=== PATIENT | male | born 1975 | race Caucasian/White ===

== ENCOUNTER 2017-09-02 06:22 | Day surgery (SDC) | payer OTHER ==
[~2017-09-02] VITALS: Ht 188 cm; Wt 192.8 kg
[~2017-09-02 06:22] MED LIST: ALPR.5 PO; AMLO5 PO; CYCL10 PO; ESCI20 PO; FLUC100 PO; HYDHCL25 PO; Lisinopril2.5 MG PO; Percocet 10-321 EACH PO
== END 2017-09-02 22:48 | disposition home or self-care (01) ==
LOC: ORSCMMR 06:22
PROVIDERS: Surgery
PROC: 0DJD8ZZ Inspection of Lower Intestinal Tract, Via Natural or Artificial Opening Endoscopic (ICD-10-PCS; principal; 2017-09-02 07:30)
DX: K92.1 Melena (principal); K64.8 Other hemorrhoids; I25.2 Old myocardial infarction; G47.33 Obstructive sleep apnea (adult) (pediatric); I10 Essential (primary) hypertension; F41.9 Anxiety disorder, unspecified; E66.01 Morbid (severe) obesity due to excess calories; Z68.43 Body mass index [BMI] 50.0-59.9, adult; Z87.891 Personal history of nicotine dependence; Z79.899 Other long term (current) drug therapy
CPT/HCPCS: J7120

== ENCOUNTER → 2017-10-18 | Outpatient (CLI) | payer OTHER ==
[2017-10-18 17:44] LABS: U Amphetamine Screen Not Detected; U Barbituate Screen Not Detected; U Benzodiazapine Screen DETECTED; U Buprenorphine Screen Not Detected; U Cannabinoids Screen Not Detected; U Cocaine Screen Not Detected; U Methadone Screen Not Detected; U Methamphetamine Screen Not Detected; U Opiates Screen Not Detected; U Oxycodone Screen Not Detected; U Phencyclidine Screen Not Detected; U Propoxyphene Screen Not Detected
[2017-10-20 22:07] LABS: Alpha Hyrdroxyalprazolam 180.3 ng/mL (NOTDET); Alpha hydroxytriazolam Not Detected (NOTDET); Alprazolam 91.7 ng/mL (NOTDET); Confirm Clonazepam LC/MS Not Detected (NOTDET); Confirm Flunitrazepam LC/MS Not Detected (NOTDET); Diazepam Not Detected (NOTDET); Flurazepam Not Detected (NOTDET); Lorazepam Not Detected (NOTDET); Midazolam Not Detected (NOTDET); Temazepam Not Detected (NOTDET)
== END ==
LOC: LAB 17:07
PROVIDERS: Internal Medicine
DX: Z51.81 Encounter for therapeutic drug level monitoring (principal); Z79.899 Other long term (current) drug therapy
CPT/HCPCS: G0480

== ENCOUNTER → 2019-02-08 | Outpatient (CLI) | payer OTHER ==
[2019-02-08 18:36] LABS: U Amphetamine Screen Not Detected; U Barbituate Screen Not Detected; U Benzodiazapine Screen Not Detected; U Buprenorphine Screen Not Detected; U Cannabinoids Screen Not Detected; U Cocaine Screen Not Detected; U Methadone Screen Not Detected; U Methamphetamine Screen Not Detected; U Opiates Screen Not Detected; U Oxycodone Screen DETECTED; U Phencyclidine Screen Not Detected; U Propoxyphene Screen Not Detected
== END | disposition home or self-care (01) ==
LOC: LAB SHORT 16:33 → LAB EV 16:33
PROVIDERS: Internal Medicine
DX: Z51.81 Encounter for therapeutic drug level monitoring (principal); Z79.899 Other long term (current) drug therapy

== ENCOUNTER → 2021-01-23 | Outpatient (CLI) | payer OTHER ==
[2021-01-23 19:08] LABS: BASOPHILS ABSOLUTE AUTO 0.06 K/mm3 (0.00-0.23); BASOPHILS PERCENT AUTO 1 % (0-2); EOSINOPHILS ABSOLUTE AUTO 0.12 K/mm3 (0.00-0.68); EOSINOPHILS PERCENT AUTO 1 % (0-6); Hematocrit 45.1 % (37.0-53.0); Hemoglobin 14.5 g/dL (13.5-17.5); IMMATURE GRAN ABSOLUTE AUTO 0.04 K/mm3 (0.00-0.10); IMMATURE GRAN PERCENT AUTO 0 % (0-1); LYMPHOCYTES ABSOLUTE AUTO 1.74 K/mm3 (0.84-5.20); LYMPHOCYTES PERCENT AUTO 17 % (21-46); MONOCYTES ABSOLUTE AUTO 0.71 K/mm3 (0.16-1.47); MONOCYTES PERCENT AUTO 7 % (4-13); Mean Corpuscular HGB 28.2 pg (26.0-34.0); Mean Corpuscular HGB Conc 32.2 g/dL (31.5-36.5); Mean Corpuscular Volume 88 fL (80-100); Mean Platelet Volume 12.9 fL (9.1-12.4); NEUTROPHILS ABSOLUTE AUTO 7.36 K/mm3 (1.96-9.15); NEUTROPHILS PERCENT AUTO 73 % (41-73); Platelet Count 217 K/mm3 (150-400); RDW Coefficient Variation 13.1 % (11.7-14.2); RDW Standard Deviation 42.1 fL (35.1-46.3); Red Blood Cell Count 5.15 M/mm3 (4.30-5.90); White Blood Cell Count 10.03 K/mm3 (4.00-11.30)
[2021-01-23 20:02] LABS: Alanine Aminotransfer (ALT/SGP 49 U/L (12-78); Albumin, Blood 3.6 g/dL (3.4-5.0); Albumin/Globulin Ratio 0.8 (0.8-1.8); Alk Phos 88 U/L (50-136); Anion Gap 4 mmol/L (6-16); Aspartate Aminotrans (AST/SGOT 24 U/L (12-37); Bilirubin, Total 0.5 mg/dL (0.1-1.0); Blood Urea Nitrogen 17 mg/dL (8-24); Bun/Creatinine Ratio 19.7 (12.0-20.0); CHOL/HDL RATIO 3.4; CO2, Blood 26 mmol/L (21-32); Calcium, Blood 8.9 mg/dL (8.5-10.1); Chloride, Blood 109 mmol/L (98-108); Cholesterol 151 mg/dL (50-200); Creatinine, Blood 0.86 mg/dL (0.60-1.20); Globulin, Blood 4.6 g/dL (2.2-4.0); Glomerular Filtration Rate >60 (60-); Glucose, Blood 98 mg/dL (70-99); HDL Cholesterol 45 mg/dL (>39); Low Density Lipoprotein Chol 89 mg/dL (0-110); Potassium, Blood 4.2 mmol/L (3.5-5.5); Sodium, Blood 139 mmol/L (136-145); Total Protein, Blood 8.2 g/dL (6.4-8.2); Triglycerides 83 mg/dL (30-160); Very Low Density Lipoprot Chol 16 mg/dL (6-32)
[2021-01-24 08:10] LABS: HIV SCREEN 4TH GENERATION WRFX Non Reactive (Non Reactive)
== END ==
LOC: LAB SHORT 15:45 → LAB 15:45
PROVIDERS: Physician Assistant
DX: Z00.00 Encounter for general adult medical examination without abnormal findings (principal); Z13.6 Encounter for screening for cardiovascular disorders
CPT/HCPCS: 80053; 80061; 85025; 87389